=== PATIENT | female | born 1935 | race Two or more races ===

== ENCOUNTER 2018-04-20 15:31 | Outpatient (CLI) | payer OTHER ==
[~2018-04-20 15:31] MED LIST: COSOPT PF EYE1 EACH OP; FOLIC ACID1 MG PO; METHOTREXATE2.5 MG PO; PREDNISONE2.5 MG PO; ZESTRIL20 MG PO
== END 2018-04-20 15:38 | disposition home or self-care (01) ==
LOC: NUCLEAR 15:31
DX: I87.2 Venous insufficiency (chronic) (peripheral) (principal)

== ENCOUNTER 2018-04-22 13:26 | Outpatient (CLI) | payer OTHER | END 2018-04-22 13:32 | disposition home or self-care (01) | LOC: RAD 13:26 | DX: S99.911A Unspecified injury of right ankle, initial encounter (principal); S70.02XA Contusion of left hip, initial encounter; S70.01XA Contusion of right hip, initial encounter; M54.5 Low back pain ==

== ENCOUNTER 2018-09-02 13:46 | Outpatient (CLI) | payer OTHER | END 2018-09-02 14:19 | disposition home or self-care (01) | LOC: NUCLEAR 13:46 | DX: M81.0 Age-related osteoporosis without current pathological fracture (principal) ==

== ENCOUNTER → 2018-10-04 08:46 | Outpatient (CLI) | payer OTHER | END | disposition home or self-care (01) | LOC: LAB 08:46 | DX: N39.0 Urinary tract infection, site not specified (principal) ==

== ENCOUNTER 2018-11-02 07:54 | Outpatient (CLI) | payer OTHER | END 2018-11-02 08:02 | disposition home or self-care (01) | LOC: LAB 07:54 | DX: I10 Essential (primary) hypertension (principal); E11.9 Type 2 diabetes mellitus without complications; E03.8 Other specified hypothyroidism; E78.2 Mixed hyperlipidemia ==

== ENCOUNTER 2018-12-22 07:45 | Outpatient (CLI) | payer OTHER | END 2018-12-22 07:56 | disposition home or self-care (01) | LOC: LAB 07:45 | DX: N39.0 Urinary tract infection, site not specified (principal); M06.09 Rheumatoid arthritis without rheumatoid factor, multiple sites ==

== ENCOUNTER → 2019-01-07 09:19 | Outpatient (CLI) | payer OTHER | END | disposition home or self-care (01) | LOC: LAB 09:19 | DX: N39.0 Urinary tract infection, site not specified (principal); B96.29 Other Escherichia coli [E. coli] as the cause of diseases classified elsewhere ==

== ENCOUNTER 2019-04-10 08:33 | Outpatient (CLI) | payer OTHER | END 2019-04-10 08:54 | disposition home or self-care (01) | LOC: LAB 08:33 | DX: D64.89 Other specified anemias (principal); I10 Essential (primary) hypertension; E78.49 Other hyperlipidemia; M06.09 Rheumatoid arthritis without rheumatoid factor, multiple sites ==

== ENCOUNTER 2019-06-09 09:19 | Outpatient (CLI) | payer OTHER | END 2019-06-09 15:38 | disposition home or self-care (01) | LOC: LAB 09:19 | DX: N32.81 Overactive bladder (principal); N39.0 Urinary tract infection, site not specified; B96.29 Other Escherichia coli [E. coli] as the cause of diseases classified elsewhere ==

== ENCOUNTER 2019-10-30 12:04 | Outpatient (CLI) | payer OTHER | END 2019-10-30 12:07 | disposition home or self-care (01) | LOC: MAMO-SONO 12:04 | PROVIDERS: ATTEND Specialist | DX: Z85.3 Personal history of malignant neoplasm of breast (principal) ==

== ENCOUNTER → 2019-11-27 10:22 | Outpatient (CLI) | payer OTHER | END | disposition home or self-care (01) | LOC: LAB 10:22 | PROVIDERS: ATTEND Surgery | DX: N39.41 Urge incontinence (principal); B96.29 Other Escherichia coli [E. coli] as the cause of diseases classified elsewhere ==

== ENCOUNTER → 2019-12-25 08:52 | Outpatient (CLI) | payer OTHER | END | disposition home or self-care (01) | LOC: LAB 08:52 | PROVIDERS: ATTEND Internal Medicine Cardiovascular Disease | DX: E11.9 Type 2 diabetes mellitus without complications (principal); M06.09 Rheumatoid arthritis without rheumatoid factor, multiple sites; I10 Essential (primary) hypertension; E03.8 Other specified hypothyroidism; E78.2 Mixed hyperlipidemia ==

== ENCOUNTER 2020-02-03 10:55 | Outpatient (CLI) | payer OTHER | END 2020-02-03 13:49 | disposition home or self-care (01) | LOC: LAB 10:55 | PROVIDERS: ATTEND Internal Medicine Rheumatology | DX: N39.0 Urinary tract infection, site not specified (principal); B96.29 Other Escherichia coli [E. coli] as the cause of diseases classified elsewhere ==

== ENCOUNTER 2020-08-03 08:08 | Outpatient (CLI) | payer OTHER | END 2020-08-03 08:17 | disposition home or self-care (01) | LOC: LAB 08:08 | PROVIDERS: ATTEND Internal Medicine Cardiovascular Disease | DX: Z12.11 Encounter for screening for malignant neoplasm of colon (principal); I10 Essential (primary) hypertension; E11.9 Type 2 diabetes mellitus without complications; E03.8 Other specified hypothyroidism; E78.2 Mixed hyperlipidemia; E55.9 Vitamin D deficiency, unspecified ==

== ENCOUNTER 2020-08-09 10:29 | Outpatient (CLI) | payer OTHER | END 2020-08-09 10:33 | disposition home or self-care (01) | LOC: LAB 10:29 | PROVIDERS: ATTEND Internal Medicine Cardiovascular Disease | DX: I10 Essential (primary) hypertension (principal); E11.9 Type 2 diabetes mellitus without complications; E03.9 Hypothyroidism, unspecified; E78.2 Mixed hyperlipidemia ==

== ENCOUNTER 2020-10-06 19:09 | Emergency (ER) | payer OTHER ==
[~2020-10-06] VITALS: Ht 154.9 cm; Wt 49.9 kg
[2020-10-07] MEDS ORDERED: IBU800 MG PO (00:29)
[2020-10-07] MEDS ORDERED: AMOX-CLAV 875-1 EACH PO (00:29)
== END 2020-10-07 01:13 | disposition home or self-care (01) ==
LOC: ER 19:09
DX: S02.40EA Zygomatic fracture, right side, initial encounter for closed fracture (principal); S81.012A Laceration without foreign body, left knee, initial encounter; S00.83XA Contusion of other part of head, initial encounter; W18.09XA Striking against other object with subsequent fall, initial encounter; Y93.89 Activity, other specified; Y92.488 Other paved roadways as the place of occurrence of the external cause; Y99.8 Other external cause status

== ENCOUNTER 2020-10-26 11:02 | Outpatient (CLI) | payer OTHER ==
[~2020-10-26 11:02] MED LIST changes: +AMOX-CLAV 875-1 EACH PO; +IBU800 MG PO
== END 2020-10-26 11:17 | disposition home or self-care (01) ==
LOC: LAB 11:02
PROVIDERS: ATTEND Internal Medicine Rheumatology
DX: M06.09 Rheumatoid arthritis without rheumatoid factor, multiple sites (principal)

== ENCOUNTER 2020-11-06 14:25 | Outpatient (CLI) | payer OTHER | END 2020-11-06 14:57 | disposition home or self-care (01) | LOC: MAMO-SONO 14:25 | PROVIDERS: ATTEND Specialist | DX: R92.2 Inconclusive mammogram (principal); N64.59 Other signs and symptoms in breast; Z85.3 Personal history of malignant neoplasm of breast ==

== ENCOUNTER 2021-03-19 06:18 | Outpatient (CLI) | payer OTHER | END 2021-03-19 06:19 | disposition home or self-care (01) | LOC: LAB 06:18 | PROVIDERS: ATTEND Internal Medicine Rheumatology | DX: E03.8 Other specified hypothyroidism (principal); D64.89 Other specified anemias; M81.0 Age-related osteoporosis without current pathological fracture; I10 Essential (primary) hypertension; E78.49 Other hyperlipidemia; N39.0 Urinary tract infection, site not specified ==